=== PATIENT | male | born 1965 | race Two or more races ===

== ENCOUNTER 2017-07-17 12:51 | Emergency (ER) | payer BC ==
[~2017-07-17] VITALS: Ht 185.4 cm; Wt 94.5 kg
[~2017-07-17 12:51] MED LIST: ALEVE220 MG PO; DICLOFENAC SODI75 MG PO; MOTRIN800 MG PO; NORCO 10/3251 TABLET PO; PERCOCET 5/31 TABLET PO; VOLTAREN75 MG PO; ZESTRIL40 MG PO
[2017-07-17] MEDS ORDERED: VITAMIN C1000 MG PO (14:26)
[2017-07-17 16:03] VITALS: BP 157/92
== END 2017-07-17 16:04 | disposition home or self-care (01) ==
LOC: EME 12:51
PROC: 0HQGXZZ Repair Left Hand Skin, External Approach (ICD-10-PCS; principal; 2017-07-17)
DX: S61.112A Laceration without foreign body of left thumb with damage to nail, initial encounter (principal); W26.0XXA Contact with knife, initial encounter
CPT/HCPCS: 73140; 99281; 99284